=== PATIENT | male | born 1980 | race African-American/Black ===

== ENCOUNTER 2017-05-11 23:03 | Emergency (ER) | payer SELFPAY | END 2017-05-11 23:44 | disposition home or self-care (01) | LOC: SCSER 23:03 | DX: H60.92 Unspecified otitis externa, left ear (principal); F31.9 Bipolar disorder, unspecified; Z71.6 Tobacco abuse counseling; F17.210 Nicotine dependence, cigarettes, uncomplicated | CPT/HCPCS: 99406 ==

== ENCOUNTER 2017-07-14 19:10 | Emergency (ER) | payer SELFPAY ==
[2017-07-14] MEDS ORDERED: HYDROcodone/Acetaminophen 5/325 mg Tablet ONE (20:10)
== END 2017-07-14 21:17 | disposition home or self-care (01) ==
LOC: SCSER 19:10
DX: G89.18 Other acute postprocedural pain (principal); K08.89 Other specified disorders of teeth and supporting structures; F31.9 Bipolar disorder, unspecified; F17.210 Nicotine dependence, cigarettes, uncomplicated; Z87.442 Personal history of urinary calculi
CPT/HCPCS: 99406

== ENCOUNTER 2017-10-18 09:37 | Emergency (ER) | payer SELFPAY ==
[2017-10-18] MEDS ORDERED: Proparacaine 0.5% Opth 15 ML BOT ONE (11:00)
[2017-10-18] MEDS ORDERED: Fluorescein Opthalmic Strip ONE (11:00)
== END 2017-10-18 11:55 | disposition home or self-care (01) ==
LOC: ERS 09:37
DX: H57.8 Other specified disorders of eye and adnexa (principal); F17.210 Nicotine dependence, cigarettes, uncomplicated
CPT/HCPCS: 99283

== ENCOUNTER 2017-10-23 00:41 | Emergency (ER) | payer OTHER, SELFPAY ==
[2017-10-23] MEDS ORDERED: Methocarbamol 500 MG TAB ONE (01:07)
--- NOTE | 2017-10-23 09:09 | CT ---
PRELIMINARY REPORT/[facility]/EMERGENCY AFTER HOURS PROCEDURE: EXAM: CT Head Without Intravenous Contrast CLINICAL HISTORY: 37 years old, male; Pain; Patient HX: Neck, back pain. TECHNIQUE: Axial computed tomography images of the head/brain without intravenous contrast. COMPARISON: No relevant prior studies available. FINDINGS: Normal brain morphology. Williamson-white matter differentiation is preserved. No intracranial hemorrhage or hydrocephalus. No mass, mass effect or midline shift. No effacement of the cortical sulci and basal cisterns. Orbits are unremarkable. Paranasal sinuses are clear. Mastoid air cells are clear. No acute fracture. Right occipital scalp soft tissue swelling. IMPRESSION: 1. No acute intracranial abnormality. 2. Right occipital scalp soft tissue swelling. 3. No acute fracture. Thank you for allowing us to participate in the care of your patient. Dictated and Authenticated by: Alec Maradiaga MD 10/23/2017 2:12 AM Central Time ([place] & [place]) FINAL REPORT CT HEAD NONCONTRAST PERFORMED ON AN EMERGENCY BASIS: Date: 10/23/17 Time: 0135 hours HISTORY: Fall. Head injury. FINDINGS: Findings agree with the preliminary report by Ana. No acute intracranial abnormalities are demonstra gómez. POS: [facility]
--- NOTE | 2017-10-23 09:11 | CT ---
PRELIMINARY REPORT/[facility]/EMERGENCY AFTER HOURS PROCEDURE: EXAM: CT Cervical Spine Without Intravenous Contrast CLINICAL HISTORY: 37 years old, male; Pain; Neck pain; Patient HX: Neck, back pain. TECHNIQUE: Axial computed tomography images of the cervical spine without intravenous contrast. Coronal and sagi ttal reformatted images were created and reviewed. COMPARISON: No relevant prior studies available. FINDINGS: Vertebrae: No acute fracture. No spondylolisthesis. Discs/spinal canal/neural foramina: No high grade spinal canal stenosis. Soft tissues: Unremarkable. Lymph nodes: Scattered nonspecific bilateral lymph nodes are present. Lung apices: Unremarkable. IMPRESSION: No acute findings. Thank you for allowing us to participate in the care of your patient. Dictated and Authenticated by: Alec Maradiaga MD 10/23/2017 2:18 AM Central Time ([place] & [place]) FINAL REPORT CT CERVICAL SPINE NONCONTRAST PERFORMED ON AN EMERGENCY BASIS: Date: 10/23/17 Time: 0140 hours HISTORY: Fall. Neck injury. FINDINGS: Findings agree with the preliminary report by Ana. No acute osseous abnormalities are demonstrated. POS: [facility]
--- NOTE | 2017-10-23 09:14 | CT ---
PRELIMINARY REPORT/[facility]/EMERGENCY AFTER HOURS PROCEDURE: EXAM: CT Chest With Intravenous Contrast CLINICAL HISTORY: 37 years old, male; Pain; Other: Back pain; Patient HX: Neck, back pain. TECHNIQUE: Axial computed tomography images of the chest with intravenous contrast. Coronal and sagittal reformatted images were created and reviewed. CONTRAST: 85 mL of ISO 370 administered intravenously. COMPARISON: No relevant prior studies available. FINDINGS: Lungs: No consolidation. Pleural space: No pneumothorax. No significant effusion. Heart: Unremarkable. Bones/joints: Subtle superior endplate irregularities of T3, T4 and T5. Soft tissues: Unremarkable. Vasculature: Unremarkable. No thoracic aortic aneurysm. Lymph nodes: Non specific mediastinal lymph nodes present. IMPRESSION: 1. No acute intrathoracic abnormality. 2. Subtle superior endplate deformities of T3, T4 and T5. Cannot totally exclude acute osseous injury . Correlate clinically for any point tenderness in these region. EXAM: CT Abdomen and Pelvis With Intravenous Contrast CLINICAL HISTORY: 37 years old, male; Pain; Other: Back pain; Patient HX: Neck, back pain. TECHNIQUE: Axial computed tomography images of the abdomen and pelvis with intravenous contrast. Coronal and sag ittal reformatted images were created and reviewed. CONTRAST: 85 mL of ISO 370 administered intravenously. COMPARISON: No relevant prior studies available. FINDINGS: ABDOMEN: Liver: Unremarkable. Gallbladder and bile ducts: Gallbladder is contracted. Pancreas: Unremarkable. Spleen: Unremarkable. Adrenals: 9 x 7 mm left adrenal adenoma. Kidneys and ureters: Unremarkable. Stomach and bowel: Unremarkable. PELVIS: Appendix: Postsurgical changes from prior appendectomy. Bladder: Unremarkable. Reproductive: Unremarkable. ABDOMEN and PELVIS: Intraperitoneal space: No free air. No significant fluid collection. Bones/joints: No acute fracture. No dislocation. Soft tissues: Unremarkable. Vasculature: Unremarkable. No abdominal aortic aneurysm. Lymph nodes: Scattered non specific subcentimeter mesenteric lymph nodes. IMPRESSION: No acute intra-abdominal or pelvic pathology. Thank you for allowing us to participate in the care of your patient. Dictated and Authenticated by: Alec Maradiaga MD 10/23/2017 2:32 AM Central Time ([place] & [place]) FINAL REPORT CT CHEST WITH IV CONTRAST CT ABDOMEN AND PELVIS WITH IV CONTRAST CT THORACIC SPINE NONCONTRAST CT LUMBAR SPINE NONCONTRAST: Date: 10/23/17 HISTORY: Fall. Chest injury. Abdomen and back injury. FINDINGS: Findings agree with the preliminary report by Ana. No acute traumatic injury is demonstrated. Mild d egenerative changes thoracic spine. Hyperdensity associated with the urinary collecting systems is co nsistent with the IV contrast material. Lack of oral contrast limits evaluation. No evidence of obstr uction. POS: [facility]
== END 2017-10-23 04:30 | disposition home or self-care (01) ==
LOC: SCSER 00:41
DX: M54.6 Pain in thoracic spine (principal); M54.2 Cervicalgia; F17.210 Nicotine dependence, cigarettes, uncomplicated; Z87.442 Personal history of urinary calculi; V43.62XA Car passenger injured in collision with other type car in traffic accident, initial encounter; Y92.488 Other paved roadways as the place of occurrence of the external cause
CPT/HCPCS: 70450; 71260; 72125; 74177

== ENCOUNTER 2017-10-25 17:25 | Emergency (ER) | payer OTHER, SELFPAY ==
[2017-10-25] MEDS ORDERED: Diazepam 5 MG TAB ONE (19:48)
[2017-10-25] MEDS ORDERED: Ketorolac Tromethamine 60 MG/2 ML VIAL ONE (19:49)
== END 2017-10-25 20:34 | disposition home or self-care (01) ==
LOC: ERS 17:25
DX: M62.830 Muscle spasm of back (principal); F17.210 Nicotine dependence, cigarettes, uncomplicated; V49.9XXA Car occupant (driver) (passenger) injured in unspecified traffic accident, initial encounter
CPT/HCPCS: 96372; J1885

== ENCOUNTER 2017-10-26 01:05 | Inpatient (IN) | payer SELFPAY ==
[2017-10-26] MEDS ORDERED: Ondansetron ODT 4 MG TAB ONE (02:25)
[2017-10-26 02:58] LABS: #Eosinphils 0.1 thou/uL (0.0-0.7); #Monocytes 0.6 thou/uL (0.11-0.59); #Neutrophils 9.5 thou/uL (1.40-6.50); %Basophils 0.2 % (0.0-1.0); %Eosinophils 0.7 % (0.0-10.0); %Lymphocytes 16.3 % (21.0-51.0); %Monocytes 5.2 % (0.0-10.0); %Neutrophils 77.5 % (42.0-75.0); Mean Corpuscular Hemoglobin 28.7 pg (27.0-31.0); Mean Corpuscular Volume 86.9 fl (80.0-94.0); Mean Platelet Volume 7.1 fL (7.4-10.4); Platelet Count 256 thou/uL (130-400); RBC Distribution Width 11.8 % (11.5-14.5); Red Blood Cell (RBC) Count 5.21 mill/uL (4.70-6.10); White Blood Cell (WBC) Count 12.3 thou/uL (4.8-10.8)
[2017-10-26 03:04] LABS: Prothrombin Time 13.3 SEC (12.0-14.7)
[2017-10-26 03:05] LABS: PTT 22.1 SEC (22.9-36.1)
[2017-10-26 03:35] LABS: ALT (SGPT) 34 U/L (8-55); AST (SGOT) 27 U/L (5-34); Albumin 4.3 g/dL (3.5-5.0); Alkaline Phosphatase 64 U/L (40-150); Anion Gap 12 mmol/L (10-20); BUN (Urea Nitrogen) 23 mg/dL (8.9-20.6); Bilirubin, Total 0.4 mg/dL (0.2-1.2); CK (CPK) 813 U/L (30-200); Calc. Creatinine Clearance 0 mL/min (70-130); Calcium 9.3 mg/dL (7.8-10.44); Carbon Dioxide 23 mmol/L (22-29); Chloride 106 mmol/L (98-107); Estimated GFR-MDRD 68; Globulin 2.7 g/dL (2.4-3.5); Glucose 120 mg/dL (70-105); Potassium 4.4 mmol/L (3.5-5.1); Sodium 137 mmol/L (136-145)
[2017-10-26] MEDS ORDERED: hydrALAZINE 20 MG/ML VIAL SLOW IVP PRN (04:39)
[2017-10-26] MEDS ORDERED: Dextrose 5% in Water 1,000 ML IV PRN (04:39)
[2017-10-26] MEDS ORDERED: Dextrose 50% Abboject 50 ML SYRINGE SLOW IVP PRN (04:39)
[2017-10-26] MEDS: Sodium Chloride 0.9% 1,000 ML IV SCH ×2 (04:40→19:47)
[2017-10-26 06:05] VITALS: BMI 33.2
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
[2017-10-26] MEDS: Acetaminophen 1,000 MG in Premix Bag 1 BAG IVPB SCH ×3 (06:42→19:48)
[2017-10-26] MEDS ORDERED: CEFAZOLIN/Water 2 GM/20 ML SYRINGE SLOW IVP SCH (08:00)
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
--- NOTE | 2017-10-26 09:06 | RAD ---
RIGHT HUMERUS 2 VIEWS: Date: 10/26/17 HISTORY: Right arm pain. FINDINGS/IMPRESSION: There is a mildly displaced comminuted fracture involving the distal shaft of the right humerus. POS: [facility]
[2017-10-26] MEDS ORDERED: Morphine 4 MG/ML Carpuject SLOW IVP ONE (10:04)
[2017-10-26] MEDS: Senokot S 8.6-50 MG TAB PO SCH ×2 (11:04→22:16)
[2017-10-26] MEDS: Polyethylene Glycol 3350 17 GM Packet PO SCH (11:04)
[2017-10-26] MEDS: Famotidine/PF 20 mg/2ml Vial SLOW IVP SCH ×2 (11:12→21:54)
[2017-10-26] MEDS ORDERED: Succinylcholine Chloride 20 MG/ML 10 ml SYRINGE FS ONE (13:17)
[2017-10-26] MEDS ORDERED: Lidocaine 1% PF 5 ML VIAL ONE (13:17)
[2017-10-26] MEDS ORDERED: Labetalol 100 MG/20 ML MDV ONE (13:17)
[2017-10-26] MEDS ORDERED: Ondansetron HCl/PF 4 MG/2 ML Vial ONE (13:17)
[2017-10-26] MEDS ORDERED: PROPOFOL 200 MG/20 ML VIAL ONE (13:17)
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
[2017-10-26] MEDS ORDERED: Morphine 4 MG/ML VIAL ONE ×2 (15:41→16:11)
[2017-10-26] MEDS ORDERED: CEFAZOLIN/Water 2 GM/20 ML SYRINGE ONE (16:38)
[2017-10-26] MEDS ORDERED: Fentanyl 100 MCG/2 ML VIAL ONE ×3 (16:44→19:08)
[2017-10-26] MEDS ORDERED: Midazolam HCl 2 mg/2 ml Vial ONE (16:47)
[2017-10-26] MEDS ORDERED: Meperidine HCl/PF 25 MG/ML VIAL SLOW IVP PRN (19:01)
[2017-10-26] MEDS ORDERED: HYDROmorphone 2 MG/ML VIAL SLOW IVP PRN (19:01)
[2017-10-26] MEDS ORDERED: Ondansetron HCl/PF 4 MG/2 ML Vial IVP PRN (19:01)
[2017-10-26] MEDS ORDERED: HYDROcodone/Acetaminophen 10/325 mg Tablet PO PRN (22:18)
[2017-10-27] MEDS: HYDROcodone/Acetaminophen 10/325 mg Tablet PO PRN ×4 (00:19→17:04)
[2017-10-27] MEDS: CEFAZOLIN/Water 2 GM/20 ML SYRINGE SLOW IVP SCH ×3 (02:16→17:05)
[2017-10-27] MEDS: Sodium Chloride 0.9% 1,000 ML IV SCH ×2 (02:17→06:57)
[2017-10-27 05:10] LABS: #Lymphocytes 1.8 thou/uL (1.20-3.40); #Monocytes 0.6 thou/uL (0.11-0.59); #Neutrophils 8.7 thou/uL (1.40-6.50); %Eosinophils 0.3 % (0.0-10.0); %Lymphocytes 16.3 % (21.0-51.0); %Monocytes 5.2 % (0.0-10.0); %Neutrophils 78.2 % (42.0-75.0); Hemoglobin 12.8 g/dL (14.0-18.0); Mean Corpuscular HGB CONC 32.4 g/dL (32.0-36.0); Mean Corpuscular Hemoglobin 28.1 pg (27.0-31.0); Mean Corpuscular Volume 86.5 fl (80.0-94.0); Mean Platelet Volume 7.1 fL (7.4-10.4); Platelet Count 249 thou/uL (130-400); RBC Distribution Width 11.7 % (11.5-14.5); Red Blood Cell (RBC) Count 4.55 mill/uL (4.70-6.10); White Blood Cell (WBC) Count 11.2 thou/uL (4.8-10.8)
[2017-10-27 05:18] LABS: Anion Gap 13 mmol/L (10-20); BUN (Urea Nitrogen) 10 mg/dL (8.9-20.6); Calc. Creatinine Clearance 153 mL/min (70-130); Calcium 8.6 mg/dL (7.8-10.44); Carbon Dioxide 19 mmol/L (22-29); Chloride 108 mmol/L (98-107); Estimated GFR-MDRD Greater than 90; Glucose 109 mg/dL (70-105); Magnesium 2.1 mg/dL (1.6-2.6); Potassium 4.5 mmol/L (3.5-5.1); Sodium 135 mmol/L (136-145)
--- NOTE | 2017-10-27 08:33 | RAD ---
RIGHT HUMERUS TWO VIEWS: History: ORIF. Comparison: Radiograph prior day. FINDINGS: Satisfactory post-operative appearance of the distal humeral fracture. IMPRESSION: Satisfactory post op appearance. POS: [facility]
[2017-10-27] MEDS: Senokot S 8.6-50 MG TAB PO SCH (09:13)
[2017-10-27] MEDS: Famotidine/PF 20 mg/2ml Vial SLOW IVP SCH (09:13)
[2017-10-27] MEDS: Polyethylene Glycol 3350 17 GM Packet PO SCH (09:13)
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
[2017-10-27 17:29] VITALS: BP 138/84; TEMP 98.6
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
== END 2017-10-27 18:38 | disposition home or self-care (01) | DRG 494 ==
LOC: ERS 01:05 → SURG A 02:52
PROVIDERS: ADMIT Orthopaedic Surgery; ATTEND Orthopaedic Surgery
PROC: 0PSF04Z Reposition Right Humeral Shaft with Internal Fixation Device, Open Approach (ICD-10-PCS; principal; 2017-10-26)
DX: S42.401A Unspecified fracture of lower end of right humerus, initial encounter for closed fracture (principal); F17.210 Nicotine dependence, cigarettes, uncomplicated; M21.921 Unspecified acquired deformity of right upper arm; N18.9 Chronic kidney disease, unspecified
CPT/HCPCS: 36415; 76001; 80048; 80053; 82550; 83735; 84100; 85025; 85610; 85730; 86850; 86900; 86901; 93005; C1713; G0390; G8978-GP-CJ; G8979-GP-CJ; G8980-GP-CJ; G8987-GO-CJ; G8988-GO-CJ; G8989-GO-CJ; J0131; J2001; J2250; J2270; J2405; J2704; J3010; Q0162; S0028

== ENCOUNTER 2017-11-06 22:20 | Emergency (ER) | payer SELFPAY ==
[2017-11-06 23:05] LABS: #Basophils 0.1 thou/uL (0.0-0.2); #Eosinphils 0.1 thou/uL (0.0-0.7); #Neutrophils 10.4 thou/uL (1.40-6.50); %Basophils 0.6 % (0.0-1.0); %Eosinophils 0.9 % (0.0-10.0); %Lymphocytes 20.6 % (21.0-51.0); %Monocytes 6.7 % (0.0-10.0); %Neutrophils 71.3 % (42.0-75.0); Mean Corpuscular HGB CONC 33.4 g/dL (32.0-36.0); Mean Corpuscular Hemoglobin 28.6 pg (27.0-31.0); Mean Corpuscular Volume 85.7 fL (78.0-98.0); Mean Platelet Volume 6.1 fL (7.4-10.4); Platelet Count 447 thou/uL (130-400); RBC Distribution Width 11.9 % (11.5-14.5); Red Blood Cell (RBC) Count 4.53 mill/uL (4.70-6.10); White Blood Cell (WBC) Count 14.5 thou/uL (4.8-10.8)
[2017-11-06 23:24] LABS: ALT (SGPT) 40 U/L (8-55); AST (SGOT) 25 U/L (5-34); Albumin 4.5 g/dL (3.5-5.0); Alkaline Phosphatase 66 U/L (40-150); Anion Gap 16 mmol/L (10-20); BUN (Urea Nitrogen) 17 mg/dL (8.9-20.6); Bilirubin, Total 0.4 mg/dL (0.2-1.2); CK (CPK) 577 U/L (30-200); Calc. Creatinine Clearance 0 mL/min (70-130); Carbon Dioxide 22 mmol/L (22-29); Chloride 107 mmol/L (98-107); Estimated GFR-MDRD 71; Globulin 3.3 g/dL (2.4-3.5); Glucose 83 mg/dL (70-105); Potassium 4.2 mmol/L (3.5-5.1); Protein, Total 7.8 g/dL (6.0-8.3); Sodium 141 mmol/L (136-145)
== END 2017-11-07 00:11 | disposition home or self-care (01) ==
LOC: ERS 22:20
DX: E86.0 Dehydration (principal); F17.210 Nicotine dependence, cigarettes, uncomplicated; Z87.442 Personal history of urinary calculi; Z79.899 Other long term (current) drug therapy
CPT/HCPCS: 80053; 82550; 85025; 96360

== ENCOUNTER 2025-01-13 15:44 | Emergency (ER) | payer SELFPAY | END 2025-01-13 17:09 | disposition home or self-care (01) | LOC: ERS 15:44 | DX: M25.521 Pain in right elbow (principal); F17.210 Nicotine dependence, cigarettes, uncomplicated | CPT/HCPCS: 99283 ==